=== PATIENT | male | born 1990 | race African-American/Black ===

== ENCOUNTER 2021-04-23 17:10 | Emergency (ER) | payer OTHER ==
--- NOTE | 2021-04-23 18:23 | RAD REPORT ---
EXAM DESCRIPTION: RAD -Hand Left 3 View - 04/23/2021 5:53 pm CLINICAL HISTORY: Left hand pain FINDINGS: No fracture or dislocation is seen. No bone or joint abnormality noted
[2021-04-23] MEDS ORDERED: LIDOCAINE 1% MPF 30 ML VIAL ONE (19:31)
[2021-04-23] MEDS ORDERED: BUPIVACAINE 0.5% PF 10 ML VIAL ONE (19:31)
--- NOTE | 2021-04-23 20:16 | ER ---
Nurse's Notes [facility] Name: Renetta Madrigal Age: 30 yrs Sex: Male : 1990 Arrival Date: 04/23/2021 Time: 17:11 Bed 24 Private MD: Diagnosis: Laceration without foreign body of left ring finger without damage to nail-with injury of tendon Presentation: 04/23 17:12 Chief complaint: Patient states: "I was sweeping and I cut my finger with something on aa5 the bed". Pt reports laceration to left ring finger, dressing intact. Coronavirus screen: At this time, the client does not indicate any symptoms associated with coronavirus-19. Ebola Screen: Patient negative for fever greater than or equal to 101.5 degrees Fahrenheit, and additional compatible Ebola Virus Disease symptoms. Initial Sepsis Screen: Does the patient meet any 2 criteria? No. Patient's initial sepsis screen is negative. Does the patient have a suspected source of infection? No. Patient's initial sepsis screen is negative. Risk Assessment: Do you want to hurt yourself or someone else? Patient reports no desire to harm self or others. Note Pt is from [facility] and accompanied by 2 guards. 17:12 Method Of Arrival: Law Enforcement: [place] [employer] aa5 17:12 Acuity: ROJELIO 3 aa5 17:13 Chief complaint: Patient states: [facility] CUT LEFT FINGER ON METAL PIECE OF kh1 BUNK. NO ACTIVE BLEEDING NOTED. Coronavirus screen: Vaccine status: Patient reports being unvaccinated. Ebola Screen: No symptoms or risks identified at this time. Initial Sepsis Screen: Does the patient meet any 2 criteria? No. Patient's initial sepsis screen is negative. Risk Assessment: Do you want to hurt yourself or someone else? Patient reports no desire to harm self or others. Onset of symptoms was April 23, 2021. 17:13 Method Of Arrival: Law Enforcement: [place] [employer] [facility] 17:13 Acuity: ROJELIO 4 kh1 Triage Assessment: 17:15 General: Appears in no apparent distress. comfortable, Behavior is calm, cooperative, kh1 appropriate for age. Pain: Complains of pain in LEFT FINGER Pain does not radiate. Pain currently is 9 out of 10 on a pain scale. Quality of pain is described as throbbing. Historical: - Allergies: 17:15 No Known Allergies; aa5 - PMHx: 17:15 None; aa5 - Immunization history:: Adult Immunizations up to date, Client reports having NOT received the Covid vaccine. - Social history:: Smoking status: unknown Smoking status: Patient/guardian denies using tobacco. Screenin:16 Abuse screen: Denies threats or abuse. Nutritional screening: No deficits noted. kh1 Tuberculosis screening: No symptoms or risk factors identified. Fall Risk None identified. Assessment: 17:16 General: Appears in no apparent distress. Neuro: No deficits noted. Level of kh1 Consciousness is awake, alert, obeys commands, Oriented to person, place, time, situation, Appropriate for age Strap Cutter are equal bilaterally Gait is steady, Speech is normal. Cardiovascular: No deficits noted. Respiratory: No deficits noted. GI: No deficits noted. : No deficits noted. 17:44 Reassessment: Patient appears in no apparent distress at this time. Patient is alert, aj2 oriented x 3, equal unlabored respirations, skin warm/dry/pink. Vital Signs: 17:12 BP 121 / 82; Pulse 77; Resp 18 S; Temp 98.4(TE); Pulse Ox 98% on R/A; Weight 90.72 kg aa5 (R); Height 6 ft. 1 in. (185.42 cm) (R); 17:44 BP 121 / 82; Pulse 77; Resp 18; Temp 98.4; Pulse Ox 98% ; Weight 90.72 kg; Height 6 ft. aj2 1 in. (185.42 cm); 17:44 Body Mass Index 26.39 (90.72 kg, 185.42 cm) aj2 ED Course: 17:11 Patient arrived in ED. aa5 17:12 Arm band placed on. aa5 17:15 Triage completed. kh1 17:17 Adela Thorne FNP-C is [facility]. kb 17:17 Reji Aguillon MD is Attending Physician. kb 17:42 Berna Jacob is Primary Nurse. aj2 17:44 No apparent distress. Resting quietly. aj2 17:44 Patient has correct armband on for positive identification. aj2 17:44 Patient did not have IV access during this emergency room visit. aj2 17:53 Hand Left 3 View XRAY In Process Unspecified. EDMS Administered Medications: 20:40 Drug: Lidocaine (1 %) 1 vials Volume: 5 ml; Route: Infiltration; wr 20:41 Drug: Marcaine (bupivacaine) (0.25 %) 1 vials Route: Infiltration; wr Outcome: 20:16 Discharge ordered by . kb 20:41 Patient left the ED. wr Signatures: Dispatcher [employer] EDMS Adela Thorne, Jud Watson RN RN [email or web address] Carissa Arceo 1 Berna Jacob Willena wr
--- NOTE | 2021-04-23 20:17 | EDPHYS ---
Physician Documentation [facility] Name: Renetta Madrigal Age: 30 yrs Sex: Male : 1990 Arrival Date: 04/23/2021 Time: 17:11 Bed 24 Private MD: ED Physician Reji Aguillon HPI: 04/23 23:24 This 30 yrs old Black Male presents to ER via Law Enforcement with complaints of Finger kb Injury. 23:24 The patient has a laceration related to: accidentally hit hand on metal part of bunk. kb The laceration(s) is(are) located on the dorsal aspect of distal phalanx of left ring finger and dorsal aspect of middle phalanx of left ring finger. Onset: The symptoms/episode began/occurred just prior to arrival. Associated signs and symptoms: The patient has no apparent associated signs or symptoms. The patient has not experienced similar symptoms in the past. The patient has not recently seen a physician. Pt hit hand on metal part of bunk and caused laceration to left ring finger. Unable to fully extend finger.. Historical: - Allergies: 17:15 No Known Allergies; aa5 - PMHx: 17:15 None; aa5 - Immunization history:: Adult Immunizations up to date, Client reports having NOT received the Covid vaccine. - Social history:: Smoking status: unknown Smoking status: Patient/guardian denies using tobacco. ROS: 23:19 Constitutional: Negative for fever, chills, and weight loss. kb 23:19 MS/extremity: Positive for decreased range of motion, pain, of the dorsal aspect of distal phalanx of left ring finger. 23:19 Skin: Positive for laceration(s), of the dorsal aspect of middle phalanx of left ring finger. 23:19 All other systems are negative. Exam: 23:21 Constitutional: This is a well developed, well nourished patient who is awake, alert, kb and in no acute distress. Head/Face: Normocephalic, atraumatic. Respiratory: Respirations even and unlabored. No increased work of breathing, no retractions or nasal flaring. Neuro: Awake and alert, GCS 15, oriented to person, place, time, and situation. Moves all extremities. Normal gait. Psych: Awake, alert, with orientation to person, place and time. Behavior, mood, and affect are within normal limits. 23:21 Musculoskeletal/extremity: Extremities: grossly normal except: noted in the dorsal aspect of distal phalanx of left ring finger and dorsal aspect of middle phalanx of left ring finger: decreased ROM, laceration, pain, ROM: limited active range of motion, in the dorsal aspect of distal phalanx of left ring finger, Circulation is intact in all extremities. Sensation intact. Tendon exam: postive for complete laceration dorsal aspect of distal phalanx of left ring finger. 23:21 Skin: injury, laceration(s), the wound is approximately 1.5 cm(s), of the dorsal aspect of middle phalanx of left ring finger, that can be described as clean, no foreign body, linear, without bleeding. Vital Signs: 17:12 BP 121 / 82; Pulse 77; Resp 18 S; Temp 98.4(TE); Pulse Ox 98% on R/A; Weight 90.72 kg aa5 (R); Height 6 ft. 1 in. (185.42 cm) (R); 17:44 BP 121 / 82; Pulse 77; Resp 18; Temp 98.4; Pulse Ox 98% ; Weight 90.72 kg; Height 6 ft. aj2 1 in. (185.42 cm); 17:44 Body Mass Index 26.39 (90.72 kg, 185.42 cm) aj2 Laceration: 20:14 Wound Repair of 1.5cm ( 0.6in ) subcutaneous laceration to dorsal aspect of middle kb phalanx of left ring finger. Linear shaped.. Distal neuro/vascular/tendon intact. Anesthesia: Digital block administered with 5 mls of Lido/Marcaine. Wound prep: Extensive cleansing with betadine with hibiclenz by me, Wound irrigation with saline by me, Wound explored moderately. Skin closed with 3 4-0 Prolene using simple sutures and sterile technique. Patient tolerated well. MDM: 17:18 Patient medically screened. kb 20:14 Data reviewed: vital signs, nurses notes. Data interpreted: Pulse oximetry: on room air kb is 98 %. Interpretation: normal. Counseling: I had a detailed discussion with the patient and/or guardian regarding: the historical points, exam findings, and any diagnostic results supporting the discharge/admit diagnosis, radiology results, the need for outpatient follow up, a hand specialist, to return to the emergency department if symptoms worsen or persist or if there are any questions or concerns that arise at home. ED course: Pt and guards educated on need to follow up with hand specialist as soon as possible for tendon repair. 23:19 Data reviewed: I have discussed the patient's presentation/case with the attending Emergency Department Physician;. 04/23 17:27 Order name: Hand Left 3 View XRAY; Complete Time: 18:25 04/23 18:25 Order name: Dressing - Wound 04/23 18:25 Order name: Gloves, Sterile; Complete Time: 20:28 04/23 18:25 Order name: Prolene, Sutures; Complete Time: 20:28 04/23 18:25 Order name: Setup Suture Tray; Complete Time: 20:28 04/23 20:11 Order name: Finger Splint kb Administered Medications: 20:40 Drug: Lidocaine (1 %) 1 vials Volume: 5 ml; Route: Infiltration; wr 20:41 Drug: Marcaine (bupivacaine) (0.25 %) 1 vials Route: Infiltration; wr Disposition: 04/24 08:08 Co-signature as Attending Physician, Reji Aguillon MD I agree with the assessment and kdr plan of care. Disposition Summary: 04/23/21 20:16 Discharge Ordered Location: Home Condition: Stable Diagnosis - Laceration without foreign body of left ring finger without damage to nail - with kb injury of tendon Followup: kb - With: Emergency Department - When: As needed - Reason: Worsening of condition Followup: kb - With: Private Physician - When: 2 - 3 days - Reason: Recheck today's complaints, Continuance of care, Re-evaluation by your physician Discharge Instructions: - Discharge Summary Sheet kb - Tendon Repair kb - Laceration Care, Adult, [id number] kb Forms: - Medication Reconciliation Form kb - Thank You Letter kb - Antibiotic Education kb - Prescription Opioid Use kb Signatures: Dispatcher [employer] EDMS Adela Thorne, CARMEN-C CARMEN-Reji Chowdhury MD MD kdr Calderon, Audri, RN RN elissa Arceo, Theodora Paiz Corrections: (The following items were deleted from the chart) 04/23 23:24 23:19 Skin: Positive for laceration(s), of the dorsal aspect of middle phalanx of left kb middle finger, kb 23:24 23:19 MS/extremity: Positive for decreased range of motion, pain, of the dorsal aspect kb of distal phalanx of left middle finger, kb 23:26 23:21 Musculoskeletal/extremity: Extremities: grossly normal except: noted in the kb dorsal aspect of distal phalanx of left ring finger and dorsal aspect of middle phalanx of left ring finger: decreased ROM, laceration, pain, ROM: limited active range of motion, in the dorsal aspect of distal phalanx of left ring finger, Circulation is intact in all extremities. Sensation intact. kb 23:26 23:24 Pt hit hand on metal part of bunk and caused laceration to left ring finger. kb Unable to fully. kb
[2021-04-23 21:40] VITALS: BP 121/82; TEMP 98.4; O2SAT 98
== END 2021-04-23 20:41 | disposition home or self-care (01) ==
LOC: ER 17:10
PROC: 0JQK0ZZ Repair Left Hand Subcutaneous Tissue and Fascia, Open Approach (ICD-10-PCS; principal; 2021-04-23)
DX: S61.215A Laceration without foreign body of left ring finger without damage to nail, initial encounter (principal); S66.125A Laceration of flexor muscle, fascia and tendon of left ring finger at wrist and hand level, initial encounter; W26.8XXA Contact with other sharp object(s), not elsewhere classified, initial encounter
CPT/HCPCS: 99283